=== PATIENT | female | born 1985 | race Caucasian/White ===

== ENCOUNTER 2017-07-21 22:48 | Emergency (ER) | payer MEDICAID, OTHER ==
[~2017-07-21] VITALS: Ht 149.9 cm; Wt 50.0 kg
[~2017-07-21 22:48] MED LIST: ALPR1TAB3 PO; BUPR-197 PO
[2017-07-21 22:58] VITALS: BP 133/91; PULSE 134; RESP 18; TEMP 96.8; O2SAT 94
[2017-07-21] MEDS ORDERED: TRAZ300T2 PO (23:02)
--- NOTE | 2017-07-21 23:14 | PD ---
HPI Chief Complaint: Psychiatric Symptoms Time Seen by Provider: 23:04 Travel History International Travel<30 days: No Contact w/Intl Traveler<30days: No Traveled to known affect area: No History of Present Illness HPI Patient comes in under a [place] act by police after being intoxicated and arguing with her boyfriend and stated to her boyfriend that she wanted to kill herself per Parham act. Patient also reportedly punched a window and continuously rammed her head into a metal divider trying to hurt herself per Parham act. Patient denies any medical complaints or pain at this time. Denies any chest pain, shortness of breath, fevers, abdominal pain, , change in bowel or bladder, or headaches. Patient does admit to using alcohol and IV Dilaudid. Denies anything making her symptoms better or worse. Patient is upset that she is here. PFSH Past Medical History Bipolar Disorder: Yes Anxiety: Yes Depression: Yes ?: Not : 2 Para: 2 Past Surgical History Section: Yes (x2) Social History Alcohol Use: Yes (occassionally) Tobacco Use: Yes (1 ppd) Substance Use: Yes (ALCOHOL, OPIATES ) Allergies-Medications (Allergen,Severity, Reaction): Coded Allergies: No Known Allergies (Verified Adverse Reaction, Unknown, 07/21/17) Reported Meds & Prescriptions Reported Meds & Active Scripts Active Reported Trazodone (Trazodone HCl) 300 Mg Tab 300 Mg PO HS Review of Systems Except as stated in HPI: all other systems reviewed are Neg Physical Exam Narrative GENERAL: Well-developed, well nourished, in no acute distress, and non-ill appearing. SKIN: Focused skin assessment warm and dry. Tract infante noted dorsal aspect left hand is afebrile, nontender, and without crepitus or drainage. HEAD: Atraumatic. Normocephalic. EYES: Pupils equal and round. EOMI. No scleral icterus. No injection or drainage. ENT: No nasal bleeding or discharge. Mucous membranes pink and moist. NECK: Trachea midline. Supple. No nuclear rigidity. CARDIOVASCULAR: Regular rate and rhythm. No murmur appreciated. RESPIRATORY: No accessory muscle use. No respiratory distress. Clear to auscultation. Breath sounds equal bilaterally. MUSCULOSKELETAL: No obvious deformities. No clubbing. No cyanosis. No edema. Full range of motion. NEUROLOGICAL: Awake and alert. No obvious cranial nerve deficits. Motor grossly within normal limits. Normal speech. PSYCHIATRIC: Appropriate mood and affect; insight and judgment normal. Data Data Last Documented VS Vital Signs Date Time Temp Pulse Resp B/P (MAP) Pulse Ox O2 Delivery O2 Flow Rate FiO2 07/21/17 23:26 98.8 123 18 126/74 (91) 98 Room Air Orders Orders Complete Blood Count With Diff (07/21/17 23:08) Comprehensive Metabolic Panel (07/21/17:) Urinalysis - C+S If Indicated (07/21/17 23:08) Ed Urine Pregnancytest Poc (07/21/17 23:08) Oximetry (07/21/17:) Iv Access Insert/Monitor (07/21/17:) Ecg Monitoring (07/21/17 23:) Psych Screen (07/21/17:) Drug Screen, Random Urine (07/21/17:) Alcohol (Ethanol) (07/21/17:08) Salicylates (Aspirin) (07/21/17 23:08) Tylenol (Acetaminophen) (07/21/17 23:08) Sodium Chlor 0.9% 1000 Ml Inj (Ns 1000 M (07/21/17 23:15) Labs Laboratory Tests Test 07/21/17 23:35 White Blood Count 14.8 TH/MM3 Red Blood Count 4.44 MIL/MM3 Hemoglobin 13.9 GM/DL Hematocrit 41.3 % Mean Corpuscular Volume 93.0 FL Mean Corpuscular Hemoglobin 31.4 PG Mean Corpuscular Hemoglobin Concent 33.8 % Red Cell Distribution Width 13.5 % Platelet Count 233 TH/MM3 Mean Platelet Volume 7.7 FL Neutrophils (%) (Auto) 79.7 % Lymphocytes (%) (Auto) 14.4 % Monocytes (%) (Auto) 5.1 % Eosinophils (%) (Auto) 0.5 % Basophils (%) (Auto) 0.3 % Neutrophils # (Auto) 11.8 TH/MM3 Lymphocytes # (Auto) 2.1 TH/MM3 Monocytes # (Auto) 0.7 TH/MM3 Eosinophils # (Auto) 0.1 TH/MM3 Basophils # (Auto) 0.0 TH/MM3 CBC Comment DIFF FINAL Differential Comment Urine Color LIGHT-YELLOW Urine Turbidity CLEAR Urine pH 5.5 Urine Specific [place] 1.005 Urine Protein NEG mg/dL Urine Glucose (UA) NEG mg/dL Urine Ketones NEG mg/dL Urine Occult Blood NEG Urine Nitrite NEG Urine Bilirubin NEG Urine Urobilinogen LESS THAN 2.0 MG/DL Urine Leukocyte Esterase NEG Urine RBC LESS THAN 1 /hpf Urine WBC LESS THAN 1 /hpf Urine Squamous Epithelial Cells 3 /hpf Urine Amorphous Sediment RARE Urine Bacteria RARE /hpf Microscopic Urinalysis Comment CULT NOT INDICATED Blood Urea Nitrogen 9 MG/DL Creatinine 0.93 MG/DL Random Glucose 90 MG/DL Total Protein 8.1 GM/DL Albumin 4.0 GM/DL Calcium Level 8.8 MG/DL Alkaline Phosphatase 82 U/L Aspartate Amino Transf (AST/SGOT) 72 U/L Alanine Aminotransferase (ALT/SGPT) 108 U/L Total Bilirubin 0.2 MG/DL Sodium Level 142 MEQ/L Potassium Level 3.6 MEQ/L Chloride Level 107 MEQ/L Carbon Dioxide Level 24.5 MEQ/L Anion Gap 11 MEQ/L Estimat Glomerular Filtration Rate 70 ML/MIN Salicylates Level 6.6 MG/DL Urine Opiates Screen NEG Acetaminophen Level LESS THAN 2.0 MCG/ML Urine Barbiturates Screen NEG Urine Amphetamines Screen NEG Urine Benzodiazepines Screen NEG Urine Cocaine Screen NEG Urine Cannabinoids Screen NEG Ethyl Alcohol Level 168 MG/DL MDM Medical Decision Making Medical Screen Exam Complete: Yes Emergency Medical Condition: Yes Differential Diagnosis Alcohol intoxication, substance induced mood disorder, substance abuse, UTI, metabolic disturbance, other Narrative Course Patient was seen and examined. Labs were obtained and reviewed. I suspect the slight elevated white blood cell is likely stress-induced. Patient medically cleared for further treatment and evaluation by psych. Psych screening was discussed with patient. Final disposition per psych. Diagnosis Primary Impression: Medical clearance for psychiatric admission Condition: Stable Laurent Guadarrama Jul 21, 2017 23:13
[2017-07-21] MEDS ORDERED: SODIUM CHLOR 0.9% 1000 ML INJ 1,000 ML IV ONE (23:15)
[2017-07-21 23:26] VITALS: BP 126/74; PULSE 123; RESP 18; TEMP 98.8; O2SAT 98
[2017-07-21 23:55] LABS: AUTOMATED NEUTROPHIL # 11.8 TH/MM3 (1.8-7.7); BASOPHIL % 0.3 % (0.0-2.0); EOSINOPHIL # 0.1 TH/MM3 (0-0.4); EOSINOPHIL % 0.5 % (0.0-4.0); HEMATOCRIT 41.3 % (35.0-46.0); HEMO FLAGS DIFF FINAL; LYMPH % 14.4 % (9.0-44.0); LYMPHOCYTE # 2.1 TH/MM3 (1.0-4.8); MEAN CORPUSCULAR HEMOGLOBIN 31.4 PG (27.0-34.0); MEAN CORPUSCULAR HGB CONC 33.8 % (32.0-36.0); MONO % 5.1 % (0.0-8.0); NEUT % 79.7 % (16.0-70.0); PLATELET COUNT 233 TH/MM3 (150-450); RED BLOOD COUNT 4.44 MIL/MM3 (4.00-5.30); RED CELL DISTRIBUTION WIDTH 13.5 % (11.6-17.2); WHITE BLOOD COUNT 14.8 TH/MM3 (4.0-11.0)
[2017-07-22 00:14] LABS: BACTERIA, URINE RARE /hpf; BLOOD, URINE NEG (NEG); GLUCOSE,URINE NEG (NEG); KETONE, URINE NEG (NEG); NITRITE,URINE NEG (NEG); PH, URINE 5.5 (5.0-8.5); SQUAMOUS EPITHELIAL CELL URINE 3 /hpf (0-5); URINE COLOR LIGHT-YELLOW (YELLW/STRAW)
[2017-07-22 00:15] LABS: COMMENT (UR) CULT NOT INDICATED; CULTURE IF INDICATED CULT NOT INDICATED
[2017-07-22 00:39] LABS: ALT (GPT) 108 U/L (10-53); ANION GAP 11 MEQ/L (5-15); AST (GOT) 72 U/L (15-37); BICARBONATE 24.5 MEQ/L (21.0-32.0); BLOOD UREA NITROGEN 9 MG/DL (7-18); CHLORIDE 107 MEQ/L (98-107); GLOMERULAR FILTRATION RATE 70 ML/MIN (>89); POTASSIUM 3.6 MEQ/L (3.5-5.1); SODIUM (NA) 142 MEQ/L (136-145)
[2017-07-22 00:40] LABS: ALCOHOL 168 MG/DL (0-5)
[2017-07-22 00:41] LABS: ALKALINE PHOSPHATASE 82 U/L (45-117); TOTAL BILIRUBIN ADULT 0.2 MG/DL (0.2-1.0)
[2017-07-22 00:59] LABS: ACETAMINOPHEN LESS THAN 2.0 MCG/ML (10.0-30.0)
[2017-07-22 06:24] VITALS: BP 134/86; PULSE 87; RESP 16
--- NOTE | 2017-07-22 13:24 | PD ---
History of Present Illness Chief Complaint: Psychiatric Symptoms Time Seen by Provider: 13:15 Travel History International Travel<30 Days: No Contact w/Intl Traveler<30days: No Known affected area: No Legal Status Legal Status: Parham Act Par[place] Act Signed By: Yarelis Olivas Parham Act Comment: 07/21/2017 1030 PM [facility]P. [facility] #[phone] History of Present Illness: 32-year-old female [place] acted for suicidality. Patient is no longer intoxicated. She plans to return to her boyfriend/fianc. She denies any suicidal or homicidal ideation, plan or intent. She has no psychotic symptoms and her cognition is intact. She is no longer intoxicated and she is verbally la for safety. She is competent to do so. PFSH Past Medical History Bipolar Disorder: Yes Anxiety: Yes Depression: Yes ?: Not : 2 Para: 2 Past Surgical History Section: Yes (x2) Psychiatric History Psychiatric History Hx Psychiatric Treatment: Patient with a hx of bipolar d/o, depression, and anxiety d/o. Last the medical center admission was January 19, 2016 substance induced mood d/o. This physician sees no significant objective clinical evidence of bipolar disorder at this time. Patient does appear to have alcohol abuse problem. History of Inpatient Treatment: No Guns or firearms in home: No Social History Hx Alcohol Use: Yes (occassionally) Hx Tobacco Use: Yes (1 ppd) Hx Substance Use: Yes (ALCOHOL, OPIATES ) Substance Use Type: Nicotine/Cigarettes Other Substances Used: 1 ppd Hx of Substance Use Treatment: No Allergies-Medications (Allergen,Severity, Reaction): Coded Allergies: No Known Allergies (Verified Adverse Reaction, Unknown, 07/21/17) Reported Meds & Prescriptions Reported Meds & Active Scripts Active Reported Trazodone (Trazodone HCl) 300 Mg Tab 300 Mg PO HS Review of Systems Except as stated in HPI: all other systems reviewed are Neg Mental Status Examination Appearance: Appropriate Consciousness: Alert Orientation: x4 Motor Activity: Normal gait Speech: Unremarkable Language: Adequate Fund of Knowledge: Adequate Attention and Concentration: Adequate Memory: Unremarkable Mood: Appropriate Affect: Appropriate Thought Process & Associations: Intact Thought Content: Appropriate Hallucination Type: None Delusion Type: None Suicidal Ideation: No Suicidal Plan: No Suicidal Intention: No Homicidal Ideation: No Homicidal Plan: No Homicidal Intention: No Insight: Adequate Judgment: Adequate MDM Medical Decision Making Medical Record Reviewed: Yes Assessment/Plan Patient no longer qualifies for Parham act or involuntary psychiatric hospitalization. She was interviewed at bedside, medical record reviewed, and case discussed with nurse Ata. Orders Orders Complete Blood Count With Diff (07/21/17 23:08) Comprehensive Metabolic Panel (07/21/17 23:08) Urinalysis - C+S If Indicated (07/21/17 23:08) Ed Urine Pregnancytest Poc (07/21/17 23:08) Oximetry (07/21/17 23:08) Iv Access Insert/Monitor (07/21/17 23:08) Ecg Monitoring (07/21/17 23:08) Psych Screen (07/21/17 23:08) Drug Screen, Random Urine (07/21/17 23:08) Alcohol (Ethanol) (07/21/17 23:08) Salicylates (Aspirin) (07/21/17 23:08) Tylenol (Acetaminophen) (07/21/17 23:08) Sodium Chlor 0.9% 1000 Ml Inj (Ns 1000 M (07/21/17 23:15) Diet Regular Basic (07/22/17 Breakfast) Diet Regular Basic (07/22/17 Lunch) Acetaminophen (Tylenol) (07/22/17 13:30) Results Vital Signs Date Time Temp Pulse Resp B/P (MAP) Pulse Ox O2 Delivery O2 Flow Rate FiO2 07/22/17 06:24 87 16 134/86 (102) 07/21/17 23:26 98.8 123 18 126/74 (91) 98 Room Air 07/21/17 22:58 96.8 134 18 133/91 (105) 94 Laboratory Tests Test 07/21/17 23:35 White Blood Count 14.8 Red Blood Count 4.44 Hemoglobin 13.9 Hematocrit 41.3 Mean Corpuscular Volume 93.0 Mean Corpuscular Hemoglobin 31.4 Mean Corpuscular Hemoglobin Concent 33.8 Red Cell Distribution Width 13.5 Platelet Count 233 Mean Platelet Volume 7.7 Neutrophils (%) (Auto) 79.7 Lymphocytes (%) (Auto) 14.4 Monocytes (%) (Auto) 5.1 Eosinophils (%) (Auto) 0.5 Basophils (%) (Auto) 0.3 Neutrophils # (Auto) 11.8 Lymphocytes # (Auto) 2.1 Monocytes # (Auto) 0.7 Eosinophils # (Auto) 0.1 Basophils # (Auto) 0.0 CBC Comment DIFF FINAL Differential Comment Urine Color LIGHT-YELLOW Urine Turbidity CLEAR Urine pH 5.5 Urine Specific [place] 1.005 Urine Protein NEG Urine Glucose (UA) NEG Urine Ketones NEG Urine Occult Blood NEG Urine Nitrite NEG Urine Bilirubin NEG Urine Urobilinogen LESS THAN 2.0 Urine Leukocyte Esterase NEG Urine RBC LESS THAN 1 Urine WBC LESS THAN 1 Urine Squamous Epithelial Cells 3 Urine Amorphous Sediment RARE Urine Bacteria RARE Microscopic Urinalysis Comment CULT NOT INDICATED Blood Urea Nitrogen 9 Creatinine 0.93 Random Glucose 90 Total Protein 8.1 Albumin 4.0 Calcium Level 8.8 Alkaline Phosphatase 82 Aspartate Amino Transf (AST/SGOT) 72 Alanine Aminotransferase (ALT/SGPT) 108 Total Bilirubin 0.2 Sodium Level 142 Potassium Level 3.6 Chloride Level 107 Carbon Dioxide Level 24.5 Anion Gap 11 Estimat Glomerular Filtration Rate 70 Salicylates Level 6.6 Urine Opiates Screen NEG Acetaminophen Level LESS THAN 2.0 Urine Barbiturates Screen NEG Urine Amphetamines Screen NEG Urine Benzodiazepines Screen NEG Urine Cocaine Screen NEG Urine Cannabinoids Screen NEG Ethyl Alcohol Level 168 Diagnosis Primary Impression: Alcohol abuse Condition: Stable Renato Tijerina MD Jul 22, 2017 13:24
[2017-07-22] MEDS ORDERED: ACETAMINOPHEN 325 MG TAB PO ONE (13:30)
[2017-07-22 13:37] VITALS: BP 117/72; PULSE 73; RESP 18; TEMP 98.3; O2SAT 98
[2017-07-22 13:40] VITALS: BP 117/72; PULSE 73; RESP 18; O2SAT 98
--- NOTE | 2017-07-22 14:09 | PD ---
Physical Exam Date Seen by Provider: Jul 22, 2017 Time Seen by Provider: 14:07 Narrative I was asked by psychiatric ED to disposition this 32-year-old female that was cleared both medically and psychiatrically from our facility. Data Data Last Documented VS Vital Signs Date Time Temp Pulse Resp B/P (MAP) Pulse Ox O2 Delivery O2 Flow Rate FiO2 07/22/17 13:40 73 18 117/72 (87) 98 Room Air 07/22/17 13:37 98.3 Orders Orders Complete Blood Count With Diff (07/21/17 23:08) Comprehensive Metabolic Panel (07/21/17 23:08) Urinalysis - C+S If Indicated (07/21/17 23:08) Ed Urine Pregnancytest Poc (07/21/17 23:08) Oximetry (07/21/17 23:08) Iv Access Insert/Monitor (07/21/17 23:08) Ecg Monitoring (07/21/17 23:08) Psych Screen (07/21/17 23:08) Drug Screen, Random Urine (07/21/17 23:08) Alcohol (Ethanol) (07/21/17 23:08) Salicylates (Aspirin) (07/21/17 23:08) Tylenol (Acetaminophen) (07/21/17 23:08) Sodium Chlor 0.9% 1000 Ml Inj (Ns 1000 M (07/21/17 23:15) Diet Regular Basic (07/22/17 Breakfast) Diet Regular Basic (07/22/17 Lunch) Acetaminophen (Tylenol) (07/22/17 13:30) Labs Laboratory Tests Test 07/21/17 23:35 White Blood Count 14.8 TH/MM3 Red Blood Count 4.44 MIL/MM3 Hemoglobin 13.9 GM/DL Hematocrit 41.3 % Mean Corpuscular Volume 93.0 FL Mean Corpuscular Hemoglobin 31.4 PG Mean Corpuscular Hemoglobin Concent 33.8 % Red Cell Distribution Width 13.5 % Platelet Count 233 TH/MM3 Mean Platelet Volume 7.7 FL Neutrophils (%) (Auto) 79.7 % Lymphocytes (%) (Auto) 14.4 % Monocytes (%) (Auto) 5.1 % Eosinophils (%) (Auto) 0.5 % Basophils (%) (Auto) 0.3 % Neutrophils # (Auto) 11.8 TH/MM3 Lymphocytes # (Auto) 2.1 TH/MM3 Monocytes # (Auto) 0.7 TH/MM3 Eosinophils # (Auto) 0.1 TH/MM3 Basophils # (Auto) 0.0 TH/MM3 CBC Comment DIFF FINAL Differential Comment Urine Color LIGHT-YELLOW Urine Turbidity CLEAR Urine pH 5.5 Urine Specific [place] 1.005 Urine Protein NEG mg/dL Urine Glucose (UA) NEG mg/dL Urine Ketones NEG mg/dL Urine Occult Blood NEG Urine Nitrite NEG Urine Bilirubin NEG Urine Urobilinogen LESS THAN 2.0 MG/DL Urine Leukocyte Esterase NEG Urine RBC LESS THAN 1 /hpf Urine WBC LESS THAN 1 /hpf Urine Squamous Epithelial Cells 3 /hpf Urine Amorphous Sediment RARE Urine Bacteria RARE /hpf Microscopic Urinalysis Comment CULT NOT INDICATED Blood Urea Nitrogen 9 MG/DL Creatinine 0.93 MG/DL Random Glucose 90 MG/DL Total Protein 8.1 GM/DL Albumin 4.0 GM/DL Calcium Level 8.8 MG/DL Alkaline Phosphatase 82 U/L Aspartate Amino Transf (AST/SGOT) 72 U/L Alanine Aminotransferase (ALT/SGPT) 108 U/L Total Bilirubin 0.2 MG/DL Sodium Level 142 MEQ/L Potassium Level 3.6 MEQ/L Chloride Level 107 MEQ/L Carbon Dioxide Level 24.5 MEQ/L Anion Gap 11 MEQ/L Estimat Glomerular Filtration Rate 70 ML/MIN Salicylates Level 6.6 MG/DL Urine Opiates Screen NEG Acetaminophen Level LESS THAN 2.0 MCG/ML Urine Barbiturates Screen NEG Urine Amphetamines Screen NEG Urine Benzodiazepines Screen NEG Urine Cocaine Screen NEG Urine Cannabinoids Screen NEG Ethyl Alcohol Level 168 MG/DL [facility] Supervised Visit with ERIKA: Yes Narrative Course 32-year-old female presented to the emergency department intoxicated and Parham acted. Patient has sobered up subsequently, being cleared medically and cleared psychiatrically. She denies any suicidal or homicidal ideations at this time. Patient will be discharged home. Diagnosis Primary Impression: Alcohol abuse Patient Instructions: General Instructions, Abuse of Alcohol (ED), Medical Clearance for Psychiatric Care (ED) Departure Forms: Tests/Procedures Additional Instruction: DX: Alcohol Abuse Please return to ED if symptoms worsen Disposition: 01 DISCHARGE HOME Condition: Stable Jenniffer Jett DEB Jul 22, 2017 14:09
== END 2017-07-22 14:55 | disposition home or self-care (01) ==
LOC: NEPD 22:48 → NEPJ 07-22 14:55
DX: F10.10 Alcohol abuse, uncomplicated (principal); F31.9 Bipolar disorder, unspecified; F41.9 Anxiety disorder, unspecified; F17.200 Nicotine dependence, unspecified, uncomplicated
CPT/HCPCS: 80053; 80307; 81001; 84703; 85025; 96360; 96361; 99284; J7030